=== PATIENT | female | born 1990 | race Caucasian/White ===

== ENCOUNTER 2016-11-06 19:54 | Emergency (ER) | payer BC ==
[2016-11-06] MEDS ORDERED: Azithromycin 250 MG TAB ONE (20:59)
== END 2016-11-06 21:10 | disposition home or self-care (01) ==
LOC: MADERS 19:54
DX: J20.9 Acute bronchitis, unspecified (principal)
CPT/HCPCS: 87430; 99283

== ENCOUNTER 2017-05-07 19:02 | Emergency (ER) | payer BC ==
[~2017-05-07 19:02] MED LIST: Sodium Chloride 0.9% 1,000 ML BAG ONE
[2017-05-07 19:35] LABS: #Basophils 0.1 thou/uL (0.0-0.2); #Lymphocytes 0.7 thou/uL (1.20-3.40); #Monocytes 0.5 thou/uL (0.11-0.59); #Neutrophils 13.8 thou/uL (1.40-6.50); %Basophils 0.4 % (0.0-1.0); %Eosinophils 0.2 % (0.0-10.0); %Lymphocytes 4.5 % (21.0-51.0); %Neutrophils 91.8 % (42.0-75.0); Hemoglobin 15.5 g/dL (12.0-16.0); Mean Corpuscular HGB CONC 32.4 g/dL (32.0-36.0); Mean Corpuscular Hemoglobin 29.6 pg (27.0-31.0); Mean Corpuscular Volume 91.3 fl (81.0-99.0); Mean Platelet Volume 9.4 fL (7.4-10.4); Platelet Count 272 thou/uL (130-400); RBC Distribution Width 11.6 % (11.5-14.5); Red Blood Cell (RBC) Count 5.25 mill/uL (4.20-5.40)
[2017-05-07] MEDS ORDERED: Ondansetron ODT 4 MG TAB ONE (19:37)
[2017-05-07 19:49] LABS: ALT (SGPT) 71 U/L (8-55); AST (SGOT) 45 U/L (5-34); Albumin 4.4 g/dL (3.5-5.0); Alkaline Phosphatase 77 U/L (40-150); Anion Gap 17 mmol/L (10-20); BUN (Urea Nitrogen) 16 mg/dL (7.0-18.7); Bilirubin, Total 1.7 mg/dL (0.2-1.2); Calc. Creatinine Clearance 0 mL/min (70-130); Calcium 9.1 mg/dL (7.8-10.44); Carbon Dioxide 19 mmol/L (22-29); Chloride 108 mmol/L (98-107); Estimated GFR-MDRD Greater than 90; Globulin 3.4 g/dL (2.4-3.5); Glucose 132 mg/dL (70-105); Lipase 11 U/L (8-78); Potassium 3.6 mmol/L (3.5-5.1); Protein, Total 7.8 g/dL (6.0-8.3); Sodium 140 mmol/L (136-145)
[2017-05-07] MEDS ORDERED: Acetaminophen 500 MG TAB ONE (19:49)
[2017-05-07] MEDS ORDERED: Ketorolac Tromethamine 30 MG/ML VIAL ONE (20:06)
[2017-05-07 20:44] LABS: Clarity Hazy (Clear)
[2017-05-07 20:45] LABS: Bacteria/HPF Rare-Few HPF (None Seen); Bilirubin Small (Negative); Blood, Urine Negative (Negative); Crystals/HPF RARE AMORPH URATES HPF (Negative); Glucose, Urine (Dipstick) Negative (Negative); Icto Negative (Negative); Leukocyte Negative (Negative); Nitrite Negative (Negative); Protein, Urine (Dipstick) 30 mg/dL (Neg-Trace); RBC/HPF 0-3 HPF (0-3); Renal Epithelial 0-3 HPF (0-3); Squamous Epithelial 21-50 HPF (0-3); Transitional Epithelial 0-3 HPF (0-3); Urobilinogen 0.2 mg/dL (0.2-1.0); pH, Urine 5.5 (5.0-9.0)
== END 2017-05-07 21:20 | disposition home or self-care (01) ==
LOC: MADERS 19:02
DX: N39.0 Urinary tract infection, site not specified (principal)
CPT/HCPCS: 80053; 81001; 83605; 83690; 85025; 87040; 87086; 96361; 96374; J1885; J7050; Q0162

== ENCOUNTER 2022-07-20 07:50 | Emergency (ER) | payer SELFPAY ==
[2022-07-20] MEDS ORDERED: Acetaminophen 500 MG TAB ONE (08:11)
== END 2022-07-20 08:58 | disposition home or self-care (01) ==
LOC: MADERS 07:50
DX: J02.9 Acute pharyngitis, unspecified (principal); Z20.822 Contact with and (suspected) exposure to COVID-19
CPT/HCPCS: 87081; 87430; 87804; 94760; U0003; U0005

== ENCOUNTER 2024-05-20 09:55 | Emergency (ER) | payer OTHER ==
[2024-05-20] MEDS ORDERED: Amoxicillin/Potassium Clav 875 MG TAB ONE (10:50)
[2024-05-20 10:53] LABS: SARS-CoV-2 E Target Negative; SARS-CoV-2 N2 Target Negative; SARS-CoV-2 NAA Rapid Test Not Detected (NotDetected); SARS-CoV-2 RdRP gene Negative
== END 2024-05-20 10:58 | disposition home or self-care (01) ==
LOC: MADERS 09:55
DX: J01.40 Acute pansinusitis, unspecified (principal)
CPT/HCPCS: 87081; 87430; 87804; 99283; U0002

== ENCOUNTER 2024-10-02 16:09 | Emergency (ER) | payer OTHER ==
[2024-10-02] MEDS ORDERED: Dexamethasone 4 MG TAB ONE (17:27)
[2024-10-02] MEDS ORDERED: Benzonatate 100 MG CAP ONE (17:28)
[2024-10-02] MEDS ORDERED: Sodium Chloride 0.9% 1,000 ML ONE (17:28)
[2024-10-02] MEDS ORDERED: Acetaminophen 500 MG TAB ONE (17:28)
[2024-10-02] MEDS ORDERED: Ibuprofen 600 MG TAB ONE (17:28)
[2024-10-02 17:52] LABS: Pregnancy Test - Urine (BHCG) Negative (Negative); Pregu Control Background? CLEAR/WHITE (CLR/WHITE); Pregu Control Bar Appear? YES (CONTROL BAR); Specific Gravity 1.033 (1.002-1.036)
[2024-10-02 18:24] LABS: Hematocrit 42.7 % (36.0-47.0); Hemoglobin 13.4 g/dL (12.0-16.0); Mean Corpuscular HGB CONC 31.4 g/dL (32.0-36.0); Mean Corpuscular Hemoglobin 28.6 pg (27.0-31.0); Mean Corpuscular Volume 91.3 fl (78.0-98.0); Mean Platelet Volume 9.1 fL (7.4-10.4); Platelet Count 241 10x3/uL (130-400); RBC Distribution Width 12.3 % (11.5-14.5); Red Blood Cell (RBC) Count 4.67 mill/uL (4.20-5.40); White Blood Cell (WBC) Count 8.3 10x3/uL (4.8-10.8)
[2024-10-02 18:27] LABS: ALT (SGPT) 42 U/L (Less than 34); AST (SGOT) 48 U/L (11-34); Alkaline Phosphatase 57 U/L (40-110); Anion Gap 12 mmol/L (10-20); BUN (Urea Nitrogen) 7 mg/dL (7.0-18.7); Bilirubin, Total 0.4 mg/dL (0.3-1.2); Calc. Creatinine Clearance 0 mL/min (70-130); Calcium 8.7 mg/dL (7.8-10.44); Carbon Dioxide 21 mmol/L (22-29); Chloride 107 mmol/L (98-107); Estimated GFR 118; Globulin 3.7 g/dL (2.4-3.5); Glucose 118 mg/dL (70-105); Potassium 3.2 mmol/L (3.5-5.1); Protein, Total 7.7 g/dL (6.0-8.3); Sodium 137 mmol/L (136-145)
[2024-10-02 19:11] LABS: MDiff Complete? YES; Manual Diff?? YES
[2024-10-02 19:12] LABS: Band 5 % (5-11); Lymphocytes 4 % (21-51); Monocytes 6 % (0-10); Neutrophil 75 % (42-75); Reactive Lymphocytes 10 % (0-10)
[2024-10-02 19:13] LABS: Platelet Adequacy Comment Appears Adequate
== END 2024-10-02 19:59 | disposition home or self-care (01) ==
LOC: MADERS 16:09
DX: J10.1 Influenza due to other identified influenza virus with other respiratory manifestations (principal)
CPT/HCPCS: 71046; 80053; 81025; 83605; 85025; 87081; 87428; 87430; 96360; 96361; J7030; J8540